=== PATIENT | female | born 1990 | race Caucasian/White ===

== ENCOUNTER 2018-04-13 08:51 | Emergency (ER) | payer BC ==
[~2018-04-13] VITALS: Ht 157.5 cm; Wt 55.8 kg
[2018-04-13 08:57] VITALS: Ht 157.5 cm; Wt 55.8 kg
[2018-04-13 10:46] LABS: UA SPECIFIC GRAVITY 1.015 (1.005-1.035); microscopic required? YES; urine erythrocyte 1+ (NEGATIVE)
[2018-04-13 10:52] LABS: BASOPHIL % 0.2 % (0-2); PLATELET COUNT 289 x10^3mcL (130-400); RED CELL DISTRIBUTION WIDTH 14.3 % (11.5-14.5)
[2018-04-13 13:07] VITALS: BP 123/77
== END 2018-04-13 13:08 | disposition home or self-care (01) ==
LOC: ED 08:51
PROVIDERS: Emergency Medicine
DX: O23.41 Unspecified infection of urinary tract in pregnancy, first trimester (principal); O21.9 Vomiting of pregnancy, unspecified; E06.3 Autoimmune thyroiditis; Z3A.08 8 weeks gestation of pregnancy
CPT/HCPCS: 87804; J7030; Q0162